=== PATIENT | male | born 2000 | race Two or more races ===

== ENCOUNTER 2025-06-01 13:53 | Emergency (ER) | payer MEDICAID ==
[~2025-06-01] VITALS: Ht 172.7 cm; Wt 68.2 kg
[2025-06-01 14:03] VITALS: TEMP 99
[2025-06-01] MEDS: ACETAMINOPHEN 500 MG TABLET PO ONE (15:28)
[2025-06-01] MEDS: SULFAMETHOX/TRIMETH DS 800-160 MG/TABLET PO ONE (15:28)
[2025-06-01] MEDS ORDERED: IBUP-1506 PO (15:34)
[2025-06-01] MEDS ORDERED: SULF1TAB94 PO (15:34)
[2025-06-01] MEDS ORDERED: CLIN-26 PO (15:34)
[2025-06-01 15:43] VITALS: BP 122/85; PULSE 82; RESP 16; O2SAT 98
== END 2025-06-01 15:44 | disposition home or self-care (01) ==
LOC: EMS 13:54
DX: L05.01 Pilonidal cyst with abscess (principal); Z88.0 Allergy status to penicillin; Z48.817 Encounter for surgical aftercare following surgery on the skin and subcutaneous tissue
CPT/HCPCS: 99284; Z7502; Z7610